=== PATIENT | female | born 1970 | race Caucasian/White ===

== ENCOUNTER 2021-05-03 15:05 | Outpatient (CLI) | payer BC, SELFPAY ==
--- NOTE | ~2021-05-03 | MM_ITS ---
EXAMINATION: MM screening [facility] BI w nicole HISTORY: Screening mammogram TECHNIQUE: Craniocaudal and mediolateral oblique 3-D tomosynthesis images were obtained and synthetic 2-D images were generated. CAD analysis was submitted and interpreted. COMPARISON: 12/06/2014 bilateral digital screening mammogram BREAST PARENCHYMAL COMPOSITION: There are scattered areas of fibroglandular density. FINDINGS: There is no evidence of suspicious mass, calcification, or architectural distortion to sugg est malignancy in either breast. There has been no suspicious interval change. IMPRESSION: 1. No mammographic evidence of malignancy. 2. Recommend routine screening mammography in one year. BI-RADS Category 1: Negative Reviewed, dictated and finalized at location A.
== END 2021-05-03 15:06 | disposition home or self-care (01) ==
LOC: ANHIMG 15:08
PROVIDERS: PCP Family Medicine; Visit Provider Family Medicine
DX: Z12.31 Encounter for screening mammogram for malignant neoplasm of breast (principal)
CPT/HCPCS: 77063; 77067

== ENCOUNTER → 2021-05-24 18:48 | Outpatient (CLI) | payer OTHER, BC, SELFPAY ==
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
== END ==
PROVIDERS: PCP Physician Assistant Medical; Visit Provider Physician Assistant Medical
DX: M25.532 Pain in left wrist (principal); M79.642 Pain in left hand
CPT/HCPCS: 73110; 73130

== ENCOUNTER → 2021-11-20 03:45 | Outpatient (CLI) | payer BC, SELFPAY ==
[2021-11-20 20:23] LABS: SARS-CoV-2 RNA PCR Negative
== END ==
PROVIDERS: PCP Physician Assistant Medical; Visit Provider Family Medicine
DX: R50.9 Fever, unspecified (principal); Z20.822 Contact with and (suspected) exposure to COVID-19
CPT/HCPCS: C9803; U0003; U0005

== ENCOUNTER 2022-06-19 10:08 | Outpatient (CLI) | payer BC, SELFPAY ==
--- NOTE | ~2022-06-19 | MM_ITS ---
EXAMINATION: MM screening [facility] BI w nicole HISTORY: Screening mammogram TECHNIQUE: Craniocaudal and mediolateral oblique 3-D tomosynthesis images were obtained and synthetic 2-D images were generated. CAD analysis was submitted and interpreted. COMPARISON: 05/03/2021, 12/06/2014, 12/08/2011 BREAST PARENCHYMAL COMPOSITION: The breasts are almost entirely fatty. FINDINGS: There is no suspicious mass, calcification, or architectural distortion to suggest malignan cy in either breast. There has been no suspicious interval change. IMPRESSION: 1. No mammographic evidence of malignancy. 2. Recommend routine screening mammography in one year. BI-RADS Category 1: Negative Reviewed, dictated and finalized at location A.
== END 2022-06-19 10:09 | disposition home or self-care (01) ==
PROVIDERS: PCP Family Medicine; Visit Provider Family Medicine
DX: Z12.31 Encounter for screening mammogram for malignant neoplasm of breast (principal)
CPT/HCPCS: 77063; 77067

== ENCOUNTER 2022-06-28 00:14 | Day surgery (SDC) | payer BC, SELFPAY ==
[2022-06-25 09:27] VITALS: BMI 28.1
--- NOTE | 2022-06-25 09:33 | PC.NURSE ---
Addendum entered by Esdras Pereira RN 06/25/22 09:45: Ok to take Vyvanse morning of surgery. Original Note: Report to the Outpatient Waiting Room, entrance under the green pavilion located off [facility], at time _0830_ on date _[id number]_. OR Time: _1030_. - You and your visitor will be asked to self-screen and do not enter if you have any COVID symptoms. - Only one visitor and NO children visitors are allowed at this time. - The patient visitor is requested to leave or wait in car when not with patient due to restrictions. - A mask is required within the hospital. Patients may have clear liquids (water, carbonated beverages, clear teas, apple juice) until 3 hours prior to surgery with a maximum of 20 ounces. - No food from midnight until time of surgery Take the following medications with a SIP of water the morning of surgery: ____None Medications to discontinue per physician None Date to take last dose Please no make-up, nail north korean, hairspray, perfume, deodorant, or body powder the day of surgery. No jewelry (including any body piercings) or valuables the day of surgery, leave them at home. Please take a shower or bath the night before, or the morning of, surgery with an antibacterial soap. Wear comfortable, loose fitting clothing. - Jewelry must be removed prior to entering the operating room. Rings and piercings that are not removed may be cut off. - The hospital will not accept responsibility for valuables. - Please leave all valuables, including medications, at home the day of surgery. If you are going home after surgery, a licensed mobile lounge driver or operator must drive you home. - NO public transportation without another adult. - We recommend that an adult stay with you for 24 hours following discharge. - We also recommend that you do not drive, make important decision, drink alcoholic beverages, or take any drugs that were not prescribed by your health care provider for at least 24 hours after your discharge time. Follow any additional instructions given to you from your surgeon. If you or anyone in your household have experienced Covid symptoms in the past week, please notify your surgeon or the nurse liaison at the phone number below for possible testing. Telephone instructions given to _Patient and asked if any additional questions and then verbalized understanding. Patient advised to call surgeon office or pre surgery nurse liaison [phone] if any additional questions.
--- NOTE | 2022-06-27 10:27 | PM.IMHP ---
H&P: HPI History of Present Illness Date/Time: 06/27/22 10:27 Chief Complaint: Left hallux deformity and pain Narrative: 51-year-old woman with left hallux valgus deformity, pain with shoe wear and activity. Unable to exercise secondary to pain. Difficulty with daily activities secondary to pain. Has tried accommodative shoes, toe strapping and exercises. Continues to have symptoms on a daily basis. Review of Systems Constitutional: Constitutional: Denies fever(s) Eyes: Eyes: Denies blurry vision ENT: Reports Normal hearing present Cardiovascular: Cardiovascular: Denies chest pain and Denies dyspnea Respiratory: Respiratory: Denies dyspnea and Denies wheezing Gastrointestinal: Gastrointestinal: Denies abdominal pain Genitourinary: Genitourinary: Denies urinary urgency Musculoskeletal: Musculoskeletal: Reports as per HPI and Denies numbness Integumentary/Breasts: Skin/Breast: Denies changing lesions and Denies sores Neurologic: Reports Normal hearing present, Denies behavioral changes, Denies confusion, Denies numbness and Denies convulsions Psychiatric: Psychiatric: Denies behavioral changes, Denies confusion and Denies hallucinations Endocrine: Endocrine: Denies heat intolerance Hematologic/Lymphatic: Hematologic/Lymphatic: Denies easy bleeding Allergic/Immunologic: Allergic/Immunologic: Denies wheezing PMFSH Past Medical History Medical History Acquired hallux valgus of left foot Exostosis of toe Hallux valgus (acquired), right foot History of Holter monitoring (~01/09/11) History of screening mammography (~12/06/14) Obesity Overweight (BMI 25.0-29.9) Plantar fascial fibromatosis Stress due to marital problems Surgical History Surgical History History of endometrial ablation (~03/20/13) Family History Family History Mother Hypertension Father , fall from [place] Cirrhosis of liver Other Asthma Family history of allergic disorder Social History Social History Smoking status: Never smoker Tobacco type: cigarettes Additional smoking assessment comments: Light Social Smoker Alcohol intake: current Drinks per week: 4 Substance use: current Substance use type: marijuana Other substance usage details: several times per month Last use: occasionally Spiritual care concerns: No Meds Home Medications and Allergies Home Medications Medication Instructions Recorded Confirmed Type estradiol 2 mg tablet 2 mg PO DAILY 05/04/21 06/25/22 History etonogestrel 68 mg subdermal 1 implant subdermal ONCE 05/04/21 04/24/22 History implant (Nexplanon) triamcinolone acetonide 0.1 % 1 applic topical QID #453.6 grams 01/10/22 06/25/22 Rx topical cream lisdexamfetamine 30 mg capsule 30 mg PO DAILY #30 caps 04/12/22 04/24/22 Rx (Vyvanse) lisdexamfetamine 30 mg capsule 30 mg PO DAILY #30 caps 04/12/22 04/24/22 Rx (Vyvanse) lisdexamfetamine 30 mg capsule 30 mg PO DAILY #30 caps 04/12/22 06/25/22 Rx (Vyvanse) Allergies Allergy/AdvReac Type Severity Reaction Status Date / Time Penicillins Allergy Unknown Rash Verified 06/25/22 09:25 Exam Const: General: healthy appearing; No in distress or confusion Orientation/consciousness: oriented to person, oriented to place, oriented to time and No confusion HENMT: Head: normal to inspection, normocephalic and atraumatic Eyes: Conjunctivae: conjunctivae normal Sclera: sclerae normal Neck: Neck: supple and nontender Resp: Effort & Inspection: normal respiratory effort and no audible wheezes Cardio: Rate: regular rate Rhythm: regular rhythm Skin: General skin exam: no rashes or lesions noted Neuro: General: oriented to person, oriented to place, oriented to time and No confusion Extrem: Right upper extremity: normal t
[2022-06-28] VITALS (8 sets, daily range): BP systolic 88–119; BP diastolic 50–72; PULSE 47–77; RESP 11–16; TEMP 36.2–37; O2SAT 99–100
--- NOTE | ~2022-06-28 | XR_ITS ---
EXAMINATION: XR surgery orthopedic DATE: 06/28/2022 12:36 INDICATION: Osteotomy the left first metatarsal TECHNIQUE: 4 fluoroscopic images of the left forefoot were obtained during procedure performed by Dr. To. Radiologist was not present for the imaging or procedure. The amount of fluoroscopy time us ed during this procedure was 0.2 minutes. COMPARISON: Left foot radiographs dated 04/24/2022 FINDINGS: Bunionectomy with osteotomy across the medial margin of the head of the left first metatarsal. Osteot tien, likely mucosal at the base of the left first proximal phalanx with medial sided staple fixation. Near-anatomic alignment of the axis of the left first rib. No fractures. Joint spaces are normal. IMPRESSION: 1. Bunionectomy at the medial head of the left first metatarsal and likely realignment osteotomy for hallux valgus correction at the first proximal phalanx. See procedure note for further detail. Reviewed, dictated and finalized at location A. IMPRESSION: 1. Bunionectomy at the medial head of the left first metatarsal and likely real ignment osteotomy for hallux valgus correction at the first proximal phalanx. S ee procedure note for further detail.
--- NOTE | 2022-06-28 07:06 | WPDHPUPDATE1 ---
History and Physical Update Update Date/Time: 06/28/22 07:06 History and Physical has been reviewed, including an updated exam of the patient. There are NO changes in the patient's condition. Risks, benefits, and alternatives have been discussed and questions answered. Patient agrees to proceed with procedure.
--- NOTE | 2022-06-28 08:22 | P.PNAN_ITS ---
Anes - Initial Pre Proc Eval Procedure: Operation Date: 06/28/22 10:30 Proposed Procedures p Left Hallux Valgus Correction with First Metatarsal Osteotomy, Possible Phalangeal Osteotomy - Fredi To MD Date/Time: 06/28/22 08:22 Surgeon: Fredi To MD Pre Op Diagnosis: left hallux valgus Patient Data Age: 51 Gender: F Height: 1.75 m Weight: 86.4 kg Allergies Allergy/AdvReac Type Severity Reaction Status Date / Time Penicillins Allergy Unknown Rash Verified 06/28/22 09:41 Home Medications Medication Instructions Recorded Confirmed Type estradiol 2 mg tablet 2 mg PO DAILY 05/04/21 06/28/22 History etonogestrel 68 mg subdermal 1 implant subdermal ONCE 05/04/21 04/24/22 History implant (Nexplanon) triamcinolone acetonide 0.1 % 1 applic topical QID #453.6 grams 01/10/22 06/28/22 Rx topical cream lisdexamfetamine 30 mg capsule 30 mg PO DAILY #30 caps 04/12/22 04/24/22 Rx (Vyvanse) lisdexamfetamine 30 mg capsule 30 mg PO DAILY #30 caps 04/12/22 04/24/22 Rx (Vyvanse) lisdexamfetamine 30 mg capsule 30 mg PO DAILY #30 caps 04/12/22 06/28/22 Rx (Vyvanse) Patient hx anesthesia problems: none Family hx anesthesia problems: none Results Review: All pre-operative results and documents have been reviewed as part of the pre- operative evaluation. [facility] Past Medical History Medical History Acquired hallux valgus of left foot Exostosis of toe Hallux valgus (acquired), right foot History of Holter monitoring (~01/09/11) History of screening mammography (~12/06/14) Obesity Overweight (BMI 25.0-29.9) Plantar fascial fibromatosis Stress due to marital problems Surgical History Surgical History History of endometrial ablation (~03/20/13) Family History Family History Mother Hypertension Father , fall from [place] Cirrhosis of liver Other Asthma Family history of allergic disorder Social History Social History Smoking status: Never smoker Tobacco type: cigarettes Additional smoking assessment comments: Light Social Smoker Alcohol intake: current Drinks per week: 4 Substance use: current Substance use type: marijuana Other substance usage details: several times per month Last use: occasionally Living arrangements: with family Spiritual care concerns: No Anes - Eval Final PreProcedure Day of Procedure 06/28/22 08:22 Patient weight: overweight Heart: regular rate and rhythm Lungs: clear to auscultation Airway: Mallampati scale class II Neurological: alert and oriented Last oral intake: >/= 8 hours ASA classification: II Emergent: no Anesthetic plan: proceed Anesthesia type and monitoring: general LMA and standard monitoring Results Review: All pre-operative results and documents have been reviewed as part of the pre- operative evaluation. Informed Consent: The patient's anesthetic plan and its attendant risks and benefits were discussed with the patient/family/POA. Questions were solicited and answers provided to the satisfaction of the patient/family/POA.
[2022-06-28] MEDS: LACTATED RINGERS 1,000 ML 30 ML IV CONT ×2 (09:09→13:02)
[2022-06-28] MEDS: ACETAMINOPHEN 500 MG TABLET 1000 MG PO (09:34)
[2022-06-28] MEDS: KETOROLAC 15 MG/ML VIAL (*BKC) IV PUSH (09:34)
[2022-06-28] MEDS: ceFAZolin 2 GM/D5W 50 ML 2 GM/50 ML BAG IVPB (10:50)
[2022-06-28] MEDS: BUPIVACAINE HCL 0.5% PF 30 ML VIAL INFILTRATE (12:09)
[2022-06-28] MEDS: fentaNYL CITRATE INJ (*CRX) 100 MCG/2 ML VIAL 25 MCG IV PUSH ×3 (12:36→12:46)
--- NOTE | 2022-06-28 12:51 | SUR.PHASEI ---
Simple mask removed at 1250.
--- NOTE | 2022-06-28 12:52 | W.PM.PROC2 ---
Procedure Note - Detailed Date of Procedure 06/28/22 Pre-op Diagnosis left hallux valgus Post-op Diagnosis Same Procedure Performed Left hallux valgus correction with proximal phalangeal osteotomy Surgeon Fredi To MD Bull Chain Operator 1st multimedia production assistant Anesthesia General Indications 51-year-old woman with hallux valgus of the left foot with large medial eminence and interphalangeus deformity. He has failed conservative treatment. She has problems with shoe wear and callus formation. She presents now for operative treatment. Description of Procedure Patient identified in the preoperative holding. Informed consent given. Operative extremity marked. Patient received intravenous antibiotics. Patient brought to the operating room where underwent general anesthetic by anesthesia team. Positioned supine on operating room table. Time-out performed confirming the patient, site of the surgery and the plan. Left foot prepped draped in the usual sterile surgical fashion using ChloraPrep skin solution. Foot and Ankle exsanguinated and calf tourniquet inflated to 225 mmHg. Longitudinal incision made over the medial eminence and the base of the hallux with a 15 blade knife. Hemostasis controlled with electrocautery. Sensory elements identified and protected. Medial capsulotomy then performed to expose the medial eminence and the metatarsophalangeal joint. Medial eminence resected in line with the medial border of the foot. Wound irrigated. Capsule then repaired to the 1st metatarsal with 0 Vicryl interrupted suture through a drill hole. Two O Vicryl interrupted suture used for the dorsal limb. Fluoroscopy confirmed reduction. Residual valgus interphalangeus was noted. Proximal phalangeal osteotomy then performed. Dissection over the medial aspect of the base of the proximal phalanx of the hallux. Retractors placed sagittal saw used to make a medial closing wedge osteotomy. Fixation achieved with a 9 mm Nitinol staple. Image intensification confirmed reduction and hardware placement. Large medial prominence at the distal aspect of the proximal phalanx also noted with callus formation. Soft tissue elevated off of this in the medial prominence was removed with a sagittal saw on rongeur. Wound irrigated and subcutaneous tissue repaired with 3-0 Monocryl interrupted suture. Wounds thoroughly irrigated and the capsule repaired with 2-0 Vicryl interrupted suture. Subcutaneous tissue repaired with 3-0 Monocryl interrupted suture and skin repaired with 4-0 nylon running suture. Sterile dressing applied. The patient was then woken from anesthesia, extubated and taken to the recovery room in stable condition. All sponge, needle, instrument counts were correct at the end of the case. Implants 10 x 9 mm Arthrex Nitinol staple Estimated Blood Loss -5.0
[2022-06-28] MEDS: oxyCODONE HCL (*CRX) 5 MG TAB IR PO (13:21)
== END 2022-06-28 14:29 | disposition home or self-care (01) ==
PROVIDERS: PCP Family Medicine; Visit Provider Orthopaedic Surgery
PROC: (CPT 28299; principal; 2022-06-28 10:30)
DX: M20.12 Hallux valgus (acquired), left foot (principal); F12.90 Cannabis use, unspecified, uncomplicated
CPT/HCPCS: 28298; 99199; A9270; C1713; J0690; J1100; J1885; J2250; J2405; J2704; J3010; J7120

== ENCOUNTER 2022-09-20 01:59 | Day surgery (SDC) | payer BC, SELFPAY ==
[2022-09-18 09:26] VITALS: BMI 29.7
--- NOTE | 2022-09-18 09:33 | PC.NURSE ---
Report to the Outpatient Waiting Room, entrance under the green pavilion located off [facility], at time 0630 on date 09/20/22. Planned Procedure Time: 0830. Time changes happen often and if your time is changed the preop area will call you the afternoon before. - You and your visitor will be asked to self-screen and do not enter if you have any COVID symptoms. - We encourage only one visitor and NO visitors under age 16 are allowed at this time. Your visitor will receive communication by the phone number that is given day of service. - The patient visitor is requested to social distance or may leave the building when not with patient due to restrictions. - A mask is OPTIONAL within the hospital. Patients may have clear liquids (water, carbonated beverages, clear teas, apple juice) until 3 hours prior to surgery with a maximum of 20 ounces. - No food from midnight until time of surgery Take the following medications with a SIP of water the morning of surgery: NONE Medications to discontinue per physician: N/A Date to take last dose: N/A Please no make-up, nail icelandic, hairspray, perfume, deodorant, or body powder the day of surgery. No jewelry (including any body piercings) or valuables the day of surgery, leave them at home. Please take a shower or bath the night before, or the morning of, surgery with an antibacterial soap. Wear comfortable, loose fitting clothing. - Jewelry must be removed prior to entering the operating room. Rings and piercings that are not removed may be cut off. - The hospital will not accept responsibility for valuables. - Please leave all valuables, including medications, at home the day of surgery. If you are going home after surgery, a licensed ambulance driver paramedic must drive you home. - NO public transportation without another adult. - We recommend that an adult stay with you for 24 hours following discharge. - We also recommend that you do not drive, make important decision, drink alcoholic beverages, or take any drugs that were not prescribed by your health care provider for at least 24 hours after your discharge time. Follow any additional instructions given to you from your surgeon. If you or anyone in your household have experienced Covid symptoms in the past week, please notify your surgeon or the nurse liaison at the phone number below for possible testing. Telephone instructions given to PT - CARLOS MATTHEWS and asked if any additional questions and then verbalized understanding. Patient advised to call surgeon office or pre surgery nurse liaison [phone] if any additional questions.
[2022-09-20] VITALS (8 sets, daily range): BP systolic 94–124; BP diastolic 60–76; PULSE 54–73; RESP 12–16; TEMP 36.6–36.7; O2SAT 97–100
--- NOTE | ~2022-09-20 | XR_ITS ---
EXAMINATION: XR surgery orthopedic DATE: 09/20/2022 09:47 INDICATION: Right hallux valgus correction TECHNIQUE: 3 fluoroscopic images of the right forefoot were obtained during procedure performed by Dr Amanda To. Radiologist was not present for the imaging or procedure. The amount of fluoroscopy time u sed during this procedure was 0.2 minutes. COMPARISON: 04/24/2022 FINDINGS: Likely realignment osteotomy extending across the proximal metaphyseal region of the right first prox imal phalanx and which is fixed with a medial sided staple. Final image demonstrates an additional os teotomy/bunionectomy at the medial head of the right first metatarsal. Alignment appears near-anatomi c. No fractures. Mild osteoarthritis at the first metatarsophalangeal joint and a few of the profiled interphalangeal joints. IMPRESSION: 1. Expected appearance of a hallux valgus correction and bunionectomy at the right first ray. Reviewed, dictated and finalized at location A. RUNNER IMPRESSION: 1. Expected appearance of a hallux valgus correction and bunionectomy at the [facility] first ray.
--- NOTE | 2022-09-20 07:07 | WPDHPUPDATE1 ---
History and Physical Update Update Date/Time: 09/20/22 07:07 History and Physical has been reviewed, including an updated exam of the patient. There are NO changes in the patient's condition. Risks, benefits, and alternatives have been discussed and questions answered. Patient agrees to proceed with procedure.
[2022-09-20] MEDS: ACETAMINOPHEN 500 MG TABLET 1000 MG PO (07:08)
[2022-09-20] MEDS: LACTATED RINGERS 1,000 ML 30 ML IV CONT (07:20)
[2022-09-20] MEDS: KETOROLAC 15 MG/ML VIAL (*BKC) IV PUSH (07:59)
--- NOTE | 2022-09-20 08:08 | WPDANESEPPF ---
Anes - Initial Pre Proc Eval Procedure: Operation Date: 09/20/22 08:30 Proposed Procedures p Right Hallux Valgus Correction, Phalangeal Osteotomy with Excision of Exostosis - Fredi To MD Date/Time: 09/20/22 08:08 Surgeon: Fredi To MD Pre Op Diagnosis: rt hallux valgus and rt hallux exostosis Patient Data Age: 52 Gender: F Height: 1.75 m Weight: 92.75 kg Last Vital Signs Temp 36.7 C 09/20/22 07:29 Pulse 70 09/20/22 07:29 Resp 16 09/20/22 07:29 BP 114/74 09/20/22 07:29 Pulse Ox 98 09/20/22 07:29 O2 Del Method Room Air 09/20/22 07:29 Allergies Allergy/AdvReac Type Severity Reaction Status Date / Time Penicillins Allergy Unknown Rash Verified 09/18/22 09:24 Home Medications Medication Instructions Recorded Confirmed Type estradiol 2 mg tablet 2 mg PO DAILY 05/04/21 09/20/22 History etonogestrel 68 mg subdermal 1 implant subdermal ONCE 05/04/21 09/20/22 History implant (Nexplanon) triamcinolone acetonide 0.1 % 1 applic topical QID #453.6 grams 01/10/22 09/20/22 Rx topical cream lisdexamfetamine 30 mg capsule 30 mg PO DAILY #30 caps 08/06/22 09/20/22 Rx (Vyvanse) hydrocodone 7.5 mg-acetaminophen 1 tablet PO Q6H PRN pain #30 tabs 09/20/22 Rx 325 mg tablet ibuprofen 800 mg tablet 800 mg PO TID PRN pain #30 tabs 09/20/22 Rx ondansetron 8 mg disintegrating 8 mg PO Q8H PRN nausea and 09/20/22 Rx tablet vomiting #10 tabs sennosides 8.6 mg-docusate sodium 1 tab-cap PO BID PRN constipation 09/20/22 Rx 50 mg tablet (Senna with Docusate #20 tabs Sodium) Patient hx anesthesia problems: none Family hx anesthesia problems: none Results Review: All pre-operative results and documents have been reviewed as part of the pre-operative evaluation. [facility] Past Medical History Medical History Acquired hallux valgus of left foot Encounter for postoperative care Exostosis of toe Hallux valgus (acquired), right foot History of Holter monitoring (~01/09/11) History of screening mammography (~12/06/14) Obesity Overweight (BMI 25.0-29.9) Plantar fascial fibromatosis Stress due to marital problems Surgical History Surgical History History of endometrial ablation (~03/20/13) Family History Family History Mother Hypertension Father , fall from [place] Cirrhosis of liver Other Asthma Family history of allergic disorder Social History Social History Smoking status: Former smoker Tobacco type: cigarettes Additional smoking assessment comments: FORMER SOCIAL SMOKER Alcohol intake: current Drinks per week: 4 Alcohol use details: SOCIAL ON SOME WEEKENDS Substance use: current Substance use type: marijuana Other substance usage details: several times per month Last use: occasionally Living arrangements: with family Spiritual care concerns: No Anes - Eval Final PreProcedure Day of Procedure 09/20/22 08:08 Patient weight: obese Heart: regular rate and rhythm Lungs: clear to auscultation Airway: Mallampati scale class II Neurological: alert and oriented Last oral intake: >/= 8 hours ASA classification: II Emergent: no Anesthetic plan: proceed Anesthesia type and monitoring: general LMA and standard monitoring Results Review: All pre-operative results and documents have been reviewed as part of the pre-operative evaluation. Informed Consent: The patient's anesthetic plan and its attendant risks and benefits were discussed with the patient/family/POA. Questions were solicited and answers provided to the satisfaction of the patient/family/POA.
--- NOTE | 2022-09-20 08:19 | W.PM.PROC2 ---
Procedure Note - Detailed Date of Procedure 09/20/22 Pre-op Diagnosis rt hallux valgus and rt hallux exostosis Post-op Diagnosis Same Procedure Performed right hallux valgus correction with phalangeal osteotomy, resection of medial exostosis. Surgeon Fredi To MD Export Freight Specialist medical claims assistant Anesthesia General Indications 52-year-old woman with right hallux valgus deformity prominence of the medial aspect of the hallux. Pain with shoe wear and daily activity. Failed conservative treatment inserts, activity modification and accommodative shoes. Presents now for operative treatment. Description of Procedure Patient identified in the preoperative holding.? Informed consent given.? Operative extremity marked.? Patient received intravenous antibiotics.? Patient brought to the operating room where underwent general anesthetic by anesthesia team.? Positioned supine on operating room table.? Time-out performed confirming the patient, site of the surgery and the plan. Right foot prepped draped in the usual sterile surgical fashion using ChloraPrep skin solution.? Foot and Ankle exsanguinated and calf tourniquet inflated to 225 mmHg.? Longitudinal incision made over the medial eminence and the base of the hallux with a 15 blade knife.? Hemostasis controlled with electrocautery.? Sensory elements identified and protected.? Medial capsulotomy then performed to expose the medial eminence and the metatarsophalangeal joint.? Medial eminence resected in line with the medial border of the foot.? Wound irrigated.? Capsule then repaired to the 1st metatarsal with 0 Vicryl interrupted suture through a drill hole.? Two O Vicryl interrupted suture used for the dorsal limb.? Fluoroscopy confirmed reduction.? Residual valgus interphalangeus was noted.? Proximal phalangeal osteotomy then performed.? Dissection over the medial aspect of the base of the proximal phalanx of the hallux.? Retractors placed and sagittal saw used to make a medial closing wedge osteotomy.? Fixation achieved with a 9 mm Nitinol staple.? Image intensification confirmed reduction and hardware placement.? Large medial prominence at the distal aspect of the proximal phalanx also noted with callus formation.? Soft tissue elevated off of this and the medial prominence was removed with a sagittal saw and smoothed with rongeur.? Wound irrigated and subcutaneous tissue repaired with 3-0 Monocryl interrupted suture.? Wounds thoroughly irrigated and the capsule repaired with 2-0 Vicryl interrupted suture.? Subcutaneous tissue repaired with 3-0 Monocryl interrupted suture and skin repaired with 4-0 nylon running suture. Implants Arthrex 9mm staple Estimated Blood Loss 5 Tourniquet Time 55 Drains No Packing No Pathology None sent Complications None Condition Stable Disposition PACU
[2022-09-20] MEDS: ceFAZolin 2 GM/D5W 50 ML 2 GM/50 ML BAG IVPB (08:36)
[2022-09-20] MEDS: BUPIVACAINE HCL 0.5% PF 30 ML VIAL 20 ML INFILTRATE (08:52)
[2022-09-20] MEDS: fentaNYL CITRATE INJ (*CRX) 100 MCG/2 ML VIAL 25 MCG IV PUSH ×2 (10:16→10:23)
[2022-09-20] MEDS: oxyCODONE HCL (*CRX) 5 MG TAB IR PO (11:18)
== END 2022-09-20 12:15 | disposition home or self-care (01) ==
PROVIDERS: PCP Family Medicine; Visit Provider Orthopaedic Surgery
PROC: (CPT 28299; principal; 2022-09-20 08:30)
DX: M20.11 Hallux valgus (acquired), right foot (principal); F12.90 Cannabis use, unspecified, uncomplicated; Z87.891 Personal history of nicotine dependence; E66.9 Obesity, unspecified; Z68.30 Body mass index [BMI] 30.0-30.9, adult
CPT/HCPCS: 28298; 99199; A9270; C1713; J0690; J1100; J1885; J2250; J2405; J2704; J3010; J7120

== ENCOUNTER 2024-01-23 10:10 | Outpatient (NON) | payer OTHER, SELFPAY | END 2024-01-23 10:11 | disposition home or self-care (01) | LOC: ANHLAB 10:12 | PROVIDERS: PCP Family Medicine; Visit Provider Family Medicine | DX: L57.0 Actinic keratosis (principal) | CPT/HCPCS: 88305 ==

== ENCOUNTER 2025-03-15 07:47 | Outpatient (NON) | payer OTHER, SELFPAY ==
--- OUTSIDE RECORDS SUMMARY | 2025-03-16 07:52 | XMS_ITS | Clinical Summary ---
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 CLOSER Gender Identity Not on file Sexual Orientation Not on file Plan of Treatment Health Maintenance Due Date Last Done Comments Hepatitis C Virus (HCV) Screening 1970 TdaP Immunization 1970 Hepatitis B Immunization (1 of 3 - 19+ 3-dose series) 1989 Pap Smear 1991 Cervical Cancer Screening (CCS) 2000 HPV/Cotest 2000 Colonoscopy 2015 Colorectal Cancer Screening 2015 Cologuard 2020 Immunochemical Fecal Occult Blood 2020 Mammogram 2020 Pneumococcal Immunization (5 0+ years) (1 of 1 - PCV) 2020 Zoster Immunization (1 of 2) 2020 Influenza Immunization (#1) 2024 SARS-COV-2 Immunization ( season) 2024 Respiratory Syncytial Virus (RSV) Immunization (Adult) (1 - 1-dose 75+ series) 2045 Meningococcal Immunization (ACWY) Aged Out No longer eligible based on patient's age to complete this topic Pneumococcal Immunization Combined Aged Out No longer eligible based on patient's age to complete this topic Rotavirus Immunization Aged Out No lo nger eligible based on patient's age to complete this topic
--- OUTSIDE RECORDS SUMMARY | 2025-03-16 07:52 | XMS_ITS | Clinical Summary ---
Author Organization [facility] Address [address] [place] [address] Care Team Providers Care Panel Coverer Name Role Phone Flynn Pressley MD Primary Care Provider +1- [phone] Source Comments [facility],non-owned Affiliates and Associated Physician Practices is amultiple site organization consisting of ambulatory clinics and hospital sitesin [place], [place], [place] and [place]. This disclosure is being madepursuant to the Care Everywhere program and may not contain all information available regarding this patient. Last updated 18.[facility] Allergies Active Allergy Reactions Criticality Noted Date Comments Penicillins Rash Medium 10/23/2019 Medications * Be aware that medications may not be up to date on this document. Alwaysverify current medications with the patient. 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 Gender Identity Not on file Sexual Orientation Not on file Last Filed Vital Signs Vital Sign Reading Time Taken Comments Blood Pressure 124/80 10/23/2019 5:12 PM ZIG ZAG SPRING MACHINE OPERATOR Pulse 78 10/23/2019 5:12 PM ZIG ZAG SPRING MACHINE OPERATOR Temperature 37 C (98.6 F) 10/23/2019 5:12 PM ZIG ZAG SPRING MACHINE OPERATOR Respiratory Rate 16 10/23/2019 5:12 PM ZIG ZAG SPRING MACHINE OPERATOR Oxygen Saturation 96% 10/23/2019 5:12 PM ZIG ZAG SPRING MACHINE OPERATOR Inhaled Oxygen Concentration - - Weight 81.2 kg (179 lb) 10/23/2019 5:12 PM ZIG ZAG SPRING MACHINE OPERATOR Height 175.3 cm (5' 9 ) 10/23/2019 5:12 PM ZIG ZAG SPRING MACHINE OPERATOR Body Mass Index 26.43 10/23/2019 5:12 PM ZIG ZAG SPRING MACHINE OPERATOR Plan of Treatment Health Maintenance Due Date Last Done Comments COLOGUARD (AGES 45-75) - COL ON CA SCREENING 1970 COLON MONITORING 1970 COLONOSCOPY - COLON CA SCREENING 1970 CT COLONOGRAPHY - COLON CA SCREENING 1970 Colorectal Cancer Screening 1970 FIT - COLON CA SCREENING 1970 FLEX SIG - COLON CA SCREENING 1970 LIPID TESTING 1970 MAMMOGRAM 1970 PAP SMEAR 1970 HIV SCREENING 1985 HEPATITIS C SCREENING 08/31/1988 DTAP/TDAP/TD VACCINES (1 - Tdap) 1989 HEPATITIS B VACCINE (1 of 3 - 19+ 3-dose series) 1989 SCREENING FOR DIABETES 10/23/2019 PNEUMOCOCCAL VACCINE 50+ (1 of 1 - PCV) 2020 ZOSTER VACCINE (1 of 2) 2020 COVID-19 VACCINE (1 - 2023-2 5 season) 2024 DEPRESSION SCREENING 11/11/2024 INFLUENZA VACCINE (Season Ended) 2025 HIB VACCINE Aged Out No longer eligi ble based on patient's age to complete this topic HPV VACCINE Aged Out No longer eligi ble based on patient's age to complete this topic MENINGOCOCCAL (Group B) VACC INE SHARED DECISION-MAKING Aged Out No longer eligibl e based on patient's age to complete this topic MENINGOCOCCAL GROUPS A/C/Y/W VACCINE Aged Out No longer eligible b ased on patient's age to complete this topic Insurance [facility] Care Teams Panel Coverer Relationship Specialty Start Date End Date Flynn Pressley MD [facility] [place] [address] PCP - General Family Medicine 10/23/19
--- OUTSIDE RECORDS SUMMARY | 2025-03-16 09:07 | XMS_ITS | Clinical Summary ---
Author Organization [facility] Address [address] [place] [address] Care Team Providers Care Consumer Product Advisor Name Role Phone Flynn Pressley MD Primary Care Provider +1- [phone] [facility],non-owned Affiliates and Associated Physician Practices is amultiple site organization consisting of ambulatory clinics and hospital sitesin [place], [place], [place] and [place]. This disclosure is being madepursuant to the Care Everywhere program and may not contain all information available regarding this patient. Last updated 18.[facility] Allergies Active Allergy Reactions Criticality Noted Date [...] on file Legal Sex Female 8:30 AM MEDICAL ASSISTANT INTERNAL MEDICINE Gender Identity Not on file Sexual Orientation Not on file Last Filed Vital Signs Vital Sign Reading Time Taken Comments Blood Pressure 124/80 10/23/2019 5:12 PM MEDICAL ASSISTANT INTERNAL MEDICINE Pulse 78 10/23/2019 5:12 PM MEDICAL ASSISTANT INTERNAL MEDICINE Temperature 37 C (98.6 F) 10/23/2019 5:12 PM MEDICAL ASSISTANT INTERNAL MEDICINE Respiratory Rate 16 10/23/2019 5:12 PM MEDICAL ASSISTANT INTERNAL MEDICINE Oxygen Saturation 96% 10/23/2019 5:12 PM MEDICAL ASSISTANT INTERNAL MEDICINE Inhaled Oxygen Concentration - - Weight 81.2 kg (179 lb) 10/23/2019 5:12 PM MEDICAL ASSISTANT INTERNAL MEDICINE Height 175.3 cm (5' 9 ) 10/23/2019 5:12 PM MEDICAL ASSISTANT INTERNAL MEDICINE Body Mass Index 26.43 10/23/2019 5:12 PM MEDICAL ASSISTANT INTERNAL MEDICINE Plan of Treatment Health Maintenance Due Date [...] patient's age to complete this topic Insurance [facility] Care Teams Consumer Product Advisor Relationship Specialty Start Date End Date Flynn Pressley MD [facility] [place] [address] PCP - General Family Medicine 10/23/19
--- OUTSIDE RECORDS SUMMARY | 2025-03-16 09:07 | XMS_ITS | Clinical Summary ---
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
== END 2025-03-16 07:48 | disposition home or self-care (01) ==
PROVIDERS: PCP Family Medicine; Visit Provider Family Medicine
DX: D23.9 Other benign neoplasm of skin, unspecified (principal)
CPT/HCPCS: 88305

== ENCOUNTER 2025-04-09 13:16 | Outpatient (CLI) | payer OTHER, SELFPAY ==
--- NOTE | ~2025-04-09 | MMUS_ITS ---
EXAMINATION: MM diagnostic gwen LT w nicole, US breast LT limited HISTORY: Follow-up left breast asymmetry. TECHNIQUE: Additional 3-D tomosynthesis images of the left breast were performed and synthetic 2-D im ages were generated. CAD analysis was submitted and interpreted. High resolution Limited left breast ultrasound was performed. COMPARISON: Comparison to multiple prior studies sequentially, with oldest reviewed study dated 05/03. BREAST PARENCHYMAL COMPOSITION: Not dense: There are scattered areas of fibroglandular density. FINDINGS: MAMMOGRAPHIC FINDINGS: The area of asymmetry in the lower inner quadrant of the left breast is less dense with spot compress ion views, compatible with superimposed fibroglandular tissue. No discrete mass or architectural dist ortion. ULTRASOUND: Limited left breast ultrasound: In the subareolar location there is an oval hypoechoic 5 mm mass with parallel orientation, circumscribed margins, no internal vascularity and no internal significant pos terior features. There is a second subareolar mass measuring 5 mm with oval configuration, parallel o rientation and subtle posterior shadowing without internal vascularity. IMPRESSION: 1. Probable benign subareolar left breast masses. 2. Recommend 6 month follow-up Limited left breast ultrasound. BI-RADS category 3, probably benign findings. Reviewed, dictated and finalized at location A. IMPRESSION: 1. Probable benign subareolar left breast masses. 2. Recommend 6 month follow-up Limited left breast ultrasound. BI-RADS category 3, probably benign findings.
--- OUTSIDE RECORDS SUMMARY | 2025-04-09 13:19 | XMS_ITS | Clinical Summary ---
Author Organization [facility] Care Team Providers Care Inspector Grain Mill Products Name Role Phone Unavailable Primary Care Provider Unavailabl e Social History Tobacco Use Types Packs/Day Years Used Date Smoking Tobacco: Never Assessed Comments Unknown Sex and Gender Information Value Date Recorded Sex Assigned at Not on file Legal Sex Female 11:58 AM CMA OR LPN Gender Identity Not on file Sexual Orientation [...] Influenza Immunization (#1) 2024 SARS-COV-2 Immunization ( - season) 2024 Respiratory Syncytial Virus (RSV) Immunization [...]
--- OUTSIDE RECORDS SUMMARY | 2025-04-09 13:19 | XMS_ITS | Clinical Summary ---
Author Organization [email or web address] Address [address] [place] [address] Care Team Providers Care [employer] Officer Name Role Phone Flynn Pressley MD Primary Care Provider +1- [phone] Source Comments [email or web address],non-owned Affiliates and Associated Physician Practices is amultiple site organization consisting of ambulatory clinics and hospital sitesin [place], [place], [place] and [place]. This disclosure is being madepursuant to the Care Everywhere program and may not contain all information available regarding this patient. Last updated 18.[email or web address] Allergies Active Allergy Reactions Criticality Noted Date [...] on file Legal Sex Female 8:30 AM HELPDESK SPECIALIST Gender Identity Not on file Sexual Orientation Not on file Last Filed Vital Signs Vital Sign Reading Time Taken Comments Blood Pressure 124/80 10/23/2019 5:12 PM HELPDESK SPECIALIST Pulse 78 10/23/2019 5:12 PM HELPDESK SPECIALIST Temperature 37 C (98.6 F) 10/23/2019 5:12 PM HELPDESK SPECIALIST Respiratory Rate 16 10/23/2019 5:12 PM HELPDESK SPECIALIST Oxygen Saturation 96% 10/23/2019 5:12 PM HELPDESK SPECIALIST Inhaled Oxygen Concentration - - Weight 81.2 kg (179 lb) 10/23/2019 5:12 PM HELPDESK SPECIALIST Height 175.3 cm (5' 9) 10/23/2019 5:12 PM HELPDESK SPECIALIST Body Mass Index 26.43 10/23/2019 5:12 PM HELPDESK SPECIALIST Plan of Treatment Health Maintenance Due Date [...] patient's age to complete this topic Insurance [facility] SELF PAY NO INSURANCE Member Subscriber Plan / Payer (Ef fective for All Dates) Name:Cassie Diya Jean Member ID:Not on file Relation to Subscriber:Not on file Name:CASSIEDIYA DUARTEAN Subscriber ID:Not on file (Home) Address: [place] [address] Payer ID:Not on file Group ID:Not on file Type:Self Pay Address: [facility] Member Subscriber Plan / Payer (Ef fective 2023-Present) Name:Diya Matthews Relation to Subscriber:Self Name:Diya Matthews Payer ID:[id number] (NAIC) Type:HMO Address: [place] [phone] Care Teams [employer] Officer Relationship Specialty Start Date End Date Flynn Pressley MD [address] [place] [phone] PCP - General Family Medicine 10/23/19
== END 2025-04-09 13:17 | disposition home or self-care (01) ==
LOC: ANHIMG 13:17
PROVIDERS: PCP Family Medicine; Visit Provider Family Medicine
DX: R92.8 Other abnormal and inconclusive findings on diagnostic imaging of breast (principal)
CPT/HCPCS: 76642; 77061; 77065; G0279

== ENCOUNTER 2025-10-11 14:16 | Outpatient (CLI) | payer OTHER, SELFPAY ==
--- NOTE | ~2025-10-11 | US_ITS ---
PROCEDURE(S): US breast LT limited INDICATION(S): R92.8 - Other abnormal and inconclusive findings on diagn... COMPARISON(S): Follow-up TECHNIQUE: Grayscale and color Doppler FINDINGS: In the left retroareolar region, there is a circumscribed, homogeneous, ovoid, hypoechoic mass with a maximum dimension of 5 mm and a parallel orientation. It appears to lie in the skin and shows a tract to the skin. This is consistent with an epidermoid cyst. Additionally, there is a similar-appearing structure, just deep to the skin in the retroareolar region. The maximum dimension is 5 mm, unchanged. IMPRESSION: No significant interval change. No mammographic evidence to suggest malignancy is seen. The patient may return to screening as per ACR guidelines. BI-RADS 2 - Benign. Reviewed, dictated and finalized at location B. ID CENTER ASSEMBLER
--- OUTSIDE RECORDS SUMMARY | 2025-10-11 15:16 | XMS_ITS | Clinical Summary ---
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 Gender Identity Not on file Sexual Orientation Not on file Plan of Treatment Health Maintenance Due Date Last Done Comments Hepatitis C Virus (HCV) Screening 1970 TdaP Immunization 1970 Hepatitis B Immunization (1 of 3 - 19+ 3-dose series) 1989 Pap Smear 1991 Cervical Cancer Screening (CCS) 2000 HPV/Cotest 2000 Cologuard 2015 Colonoscopy 2015 Colorectal Cancer Screening 2015 Immunochemical Fecal Occult Blood 2015 Pneumococcal Immunization (5 0+ years) (1 of 1 - PCV) 2020 Zoster Immunization (1 of 2) 2020 Influenza Immunization (#1) 2025 SARS-COV-2 Immunization ( - season) 2025 Respiratory Syncytial Virus (RSV) Immunization (Adult) (1 - 1-dose 75+ series) 2045 Human Papillomavirus (HPV) Immunization Aged Out No longer eligible b ased on patient's age to complete this topic Meningococcal Immunization (ACWY) Aged Out No longer eligible based on patient's age to complete this topic Rotavirus Immunization Aged Out No lo nger eligible based on patient's age to complete this topic
--- OUTSIDE RECORDS SUMMARY | 2025-10-11 15:16 | XMS_ITS | Clinical Summary ---
Author Organization [facility] Address [address] [place] [address] Care Team Providers Care Cat Scan Technologist Name Role Phone Flynn Pressley MD Primary Care Provider +1- [phone] Source Comments [facility],non-owned Affiliates and Associated Physician Practices is amultiple site organization consisting of ambulatory clinics and hospital sitesin [place], [place], [place] and [place]. This disclosure is being madepursuant to the Care Everywhere program and may not contain all information available regarding this patient. 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 Gender Identity Not on file Sexual Orientation Not on file Last Filed Vital Signs Vital Sign Reading Time Taken Comments Blood Pressure 124/80 10/23/2019 5:12 PM SQUASH CENTRE MANAGER Pulse 78 10/23/2019 5:12 PM SQUASH CENTRE MANAGER Temperature 37 C (98.6 F) 10/23/2019 5:12 PM SQUASH CENTRE MANAGER Respiratory Rate 16 10/23/2019 5:12 PM SQUASH CENTRE MANAGER Oxygen Saturation 96% 10/23/2019 5:12 PM SQUASH CENTRE MANAGER Inhaled Oxygen Concentration - - Weight 81.2 kg (179 lb) 10/23/2019 5:12 PM SQUASH CENTRE MANAGER Height 175.3 cm (5' 9) 10/23/2019 5:12 PM SQUASH CENTRE MANAGER Body Mass Index 26.43 10/23/2019 5:12 PM SQUASH CENTRE MANAGER Plan of Treatment Health Maintenance Due Date Last Done Comments COLOGUARD (AGES 45-75) - COL ON CA SCREENING 1970 COLON MONITORING 1970 COLONOSCOPY - COLON CA SCREENING 1970 CT COLONOGRAPHY - COLON CA SCREENING 1970 Colorectal Cancer Screening 1970 FIT - COLON CA SCREENING 1970 FLEX SIG - COLON CA SCREENING 1970 LIPID TESTING 1970 MAMMOGRAM 1970 HIV SCREENING 1985 HEPATITIS C SCREENING 08/31/1988 DTAP/TDAP/TD VACCINES (1 - Tdap) 1989 HEPATITIS B VACCINE (1 of 3 - 19+ 3-dose series) 1989 Cervical Cancer Screening 1991 PAP SMEAR 1991 PAP with HPV 2000 SCREENING FOR DIABETES 10/23/2019 PNEUMOCOCCAL VACCINE 50+ (1 of 1 - PCV) 2020 ZOSTER VACCINE (1 of 2) 2020 DEPRESSION SCREENING 11/11/2024 COVID-19 VACCINE (1 - 2024-2 6 season) 2025 INFLUENZA VACCINE (#1) 2025 HIB VACCINE Aged Out No longer [...] patient's age to complete this topic Insurance * Guarantor: Diya Matthews Account Type Relation to Patient Date of Phone Billing Address Personal/Family Self [address] [place], [place] [address] [address] [facility] [place] [id number] SELF PAY NO INSURANCE Member Subscriber Plan / Payer (Ef fective for All Dates) Name:Diya Matthews Member ID:Not on file Relation to Subscriber:Not on file Name:DIYA MATTHEWS Subscriber ID:Not on file (Home) Address: [address] [place] [id number] Payer ID:Not on file Group ID:Not on file Type:Self Pay Address: [facility] [place] [phone] [facility] Care Teams Cat Scan Technologist Relationship Specialty Start Date End Date Flynn Pressley MD [address] [place] [phone] (work) PCP - General Family Medicine 10/23/19
== END 2025-10-11 14:17 | disposition home or self-care (01) ==
LOC: ANHFOHIMG 14:17
PROVIDERS: PCP Family Medicine; Visit Provider Family Medicine
DX: R92.8 Other abnormal and inconclusive findings on diagnostic imaging of breast (principal)
CPT/HCPCS: 76642